=== PATIENT | female | born 1950 | race Caucasian/White ===

== ENCOUNTER 2021-02-05 17:41 | Inpatient (IN) | payer MEDICARE, BC ==
[~2021-02-05] VITALS: Ht 157.5 cm; Wt 72.6 kg
[2021-02-05] MEDS ORDERED: FENTANYL CITRATE 100 MCG/2 ML AMPUL IV ONE (18:00)
[2021-02-05] MEDS ORDERED: METO25TA6 PO (18:03)
[2021-02-05] MEDS ORDERED: PANT40TA49 PO (18:03)
[2021-02-05] MEDS ORDERED: AMLO2.5T4 PO (18:03)
[2021-02-05] MEDS ORDERED: ESCI10TA PO (18:03)
[2021-02-05] MEDS ORDERED: FENTANYL CITRATE 100 MCG/2 ML AMPUL ONE (18:13)
--- NOTE | 2021-02-05 18:17 | NUR ---
CARMELA WATKINS TALKED TO DR. MCNEILL FOR SURGICAL CONSULT.
[2021-02-05 18:41] LABS: HEMATOCRIT 39.1 % (31.2-41.9); MEAN CORPUSCULAR HEMOGLOBIN 27.6 uug (24.7-32.8); MEAN CORPUSCULAR VOLUME 83.6 fL (75.5-95.3); PLATELET COUNT (AUTO) 258 K/uL (179-408)
[2021-02-05 18:50] LABS: CREATININE 0.8 mg/dL (0.6-1.3); POTASSIUM 3.9 mmol/L (3.5-5.1)
[2021-02-05] MEDS ORDERED: IV D5 1/2 NS 1000 ML 1,000 ML IV PRN (20:00)
[2021-02-05] MEDS ORDERED: ONDANSETRON 4 MG/2 ML VIAL IV PRN (20:00)
[2021-02-05] MEDS ORDERED: ZOLPIDEM 5 MG TABLET PO PRN (20:00)
[2021-02-05] MEDS ORDERED: Z GUARD REMEDY PASTE 57 GM TUBE TOP PRN (20:00)
[2021-02-05] MEDS ORDERED: MORPHINE SULFATE 2 MG/1 ML DISP.SYRIN IV PRN (20:00)
[2021-02-05] MEDS ORDERED: MORPHINE SULFATE 4 MG/1 ML DISP.SYRIN ONE (21:13)
[2021-02-05] MEDS: ESCITALOPRAM OXALATE 10 MG TABLET PO SCH (21:13)
[2021-02-05] MEDS: MORPHINE SULFATE 4 MG/1 ML DISP.SYRIN IV PRN (21:35)
--- NOTE | 2021-02-05 21:44 | NUR ---
TRANSFERED TO 3RD FLOOR MED SURG VIA [facility] BY NURSING AIRFRAME DESIGN ENGINEER WITH NO DISTRESS NOTED.
--- NOTE | 2021-02-05 21:45 | NUR ---
Received pt via [facility] from ER. AO X 4. Able to state all needs. On room air saturating at 97%. IV intact and patent. Vital signs WNL, afebrile. Skin intact. Call lights within reach, safety measures initiated. Will continue to monitor.
[2021-02-05 22:13] VITALS: BP 140/75
[2021-02-06 03:42] LABS: BILIRUBIN,TOTAL 0.3 mg/dL (0.2-1.0); CREATININE 0.7 mg/dL (0.6-1.3); PHOSPHOROUS 3.8 mg/dL (2.5-4.9); POTASSIUM 3.8 mmol/L (3.5-5.1); TOTAL PROTEIN, SERUM 5.8 g/dL (6.4-8.2)
[2021-02-06 03:44] LABS: HEMATOCRIT 35.7 % (31.2-41.9); MEAN CORPUSCULAR HEMOGLOBIN 27.9 uug (24.7-32.8); MEAN CORPUSCULAR VOLUME 83.5 fL (75.5-95.3); PLATELET COUNT (AUTO) 233 K/uL (179-408)
[2021-02-06 04:02] LABS: *BILIRUBIN,URIN NEGATIVE (NEGATIVE); *BLOOD, URINE NEGATIVE (NEGATIVE); *CLARITY,URINE CLEAR (CLEAR); *COLOR,URINE YELLOW (YELLOW); *KETONES,URINE NEGATIVE (NEGATIVE); *UROBILINOGEN,URINE 0.2 E.U./dl (NORMAL); LEUKOCYTE ESTERASE ,URINE NEGATIVE (NEGATIVE); NITRITE, URINE NEGATIVE (NEGATIVE); UGLUCOSE NEGATIVE (NEGATIVE)
[2021-02-06 04:16] VITALS: BP 134/63
[2021-02-06 04:33] LABS: THYROID STIMULATING HORMONE 3.65 mIU/mL (0.358-3.740)
--- NOTE | 2021-02-06 05:27 | NUR ---
Patient slept throughout the night, AO x 4. On room air saturating at 96%. NPO status. IV intact and running D5 1/2 NS at 75mls/hr. No signs of acute distress. Compliant with care. All needs stated and met. Admission assessment completed. Pre-operative checklist completed. Call lights within reach, safety measures maintained. Will endorse to am shift.
[2021-02-06] MEDS: PANTOPRAZOLE SODIUM 40 MG TABLET.DR PO SCH (07:00)
[2021-02-06] MEDS ORDERED: MORPHINE SULFATE 4 MG/1 ML DISP.SYRIN IV PRN (07:15)
[2021-02-06] MEDS ORDERED: FENTANYL CITRATE 250 MCG/5 ML AMPUL ONE (07:26)
[2021-02-06] MEDS ORDERED: MIDAZOLAM HCL 2 MG/2 ML VIAL ONE (07:26)
[2021-02-06] MEDS ORDERED: HYDROMORPHONE 2 MG/1 ML DISP.SYRIN ONE (07:26)
[2021-02-06] MEDS ORDERED: ROCURONIUM BROMIDE 50 MG/5 ML VIAL ONE (07:27)
[2021-02-06] MEDS ORDERED: VANCOMYCIN 1000 MG VIAL ONE (07:29)
--- NOTE | 2021-02-06 07:54 | NUR ---
received in bed awake and oriented x4, no resp distress noted. at bedside. no c/o pain or discomfort. iv on right hand intact. picked up by OR nurses for surgery at 7:10am. no acute distress.
[2021-02-06] MEDS ORDERED: PANTOPRAZOLE SODIUM 40 MG VIAL IV SCH (09:00)
[2021-02-06] MEDS ORDERED: SEVOFLURANE 250 ML BOTTLE IH ONE (09:46)
[2021-02-06] MEDS ORDERED: NEOSTIGMINE METHYLSULFATE 10 MG/10 ML VIAL IM ONE (09:46)
[2021-02-06] MEDS ORDERED: GLYCOPYRROLATE 0.2 MG/ML VIAL IJ ONE (09:46)
[2021-02-06] MEDS ORDERED: METOCLOPRAMIDE HCL 10 MG/2 ML VIAL IV ONE (09:46)
[2021-02-06] MEDS ORDERED: PROPOFOL 200 MG/20 ML BOTTLE IV ONE (09:46)
[2021-02-06] MEDS ORDERED: LIDOCAINE-MPF 2% 5 ML VIAL IJ ONE (09:46)
[2021-02-06] MEDS ORDERED: CEFAZOLIN 1 G VIAL IM ONE (09:46)
[2021-02-06] MEDS ORDERED: ONDANSETRON 4 MG/2 ML VIAL IV ONE (09:46)
[2021-02-06] MEDS ORDERED: HYDROCODONE/APAP 10-325 MG TABLET PO PRN (10:15)
--- NOTE | 2021-02-06 11:15 | NUR ---
received back from OR sleepy but arousable and able to answer questions. denies pain at this time. right ankle with dressing intact no bleeding noted. peripheral pulse noted, skin warm to touch. pt confirmed she only has right earring. new iv line on rfa intact hydration ongoing. sister and at bedside. also seen by mackenzie valdez np and updated. cont to monitor.
[2021-02-06 11:30] VITALS: BP 142/67
[2021-02-06] MEDS: ACETAMINOPHEN 325 MG TABLET PO PRN ×3 (12:23→19:03)
[2021-02-06] MEDS: IV D5W-0.45% NS +20 KCL 1,000 ML IV PRN (12:44)
[2021-02-06] MEDS: AMLODIPINE 2.5 MG TABLET PO SCH (12:50)
[2021-02-06] MEDS: METOPROLOL TARTRATE 25 MG TABLET PO SCH (12:50)
[2021-02-06] MEDS: CEFAZOLIN 1 G in IV DEXTROSE 5% 50 ML IV SCH (16:26)
--- NOTE | 2021-02-06 18:40 | NUR ---
awake no acute distress. iv hydration ongoing. no adv reactions noted with atb. denies sob. some pain on surgical site and offered pain medication multiple times but she said she'll save it for later tonight. right ankle dressing intact, no bleeding noted. capillary refill <3s, peripheral pulse noted. safety measures maintained. needs attended.
--- NOTE | 2021-02-06 19:25 | NUR ---
Received resting in bed. AO x 4. On room air. IV intact running D5 1/2 NS 20 meq KCL. Right ankle elevated, no discoloration noted. No signs of acute distress. Denies discomfort and pain at this time. Call lights within reach, safety measures initiated. Will continue to monitor.
[2021-02-06 20:16] VITALS: BP 132/65
[2021-02-06] MEDS: ATORVASTATIN 10 MG TABLET PO SCH (20:39)
[2021-02-06] MEDS: ESCITALOPRAM OXALATE 10 MG TABLET PO SCH (20:39)
[2021-02-06] MEDS: MORPHINE SULFATE 4 MG/1 ML DISP.SYRIN IV PRN (20:40)
[2021-02-07] MEDS: CEFAZOLIN 1 G in IV DEXTROSE 5% 50 ML IV SCH (00:08)
[2021-02-07] MEDS: ACETAMINOPHEN 325 MG TABLET PO PRN ×2 (03:32→11:17)
[2021-02-07 04:16] VITALS: BP 149/69
--- NOTE | 2021-02-07 05:35 | NUR ---
Patient slept throughout the night. AO x 4. On room air saturating at 95%. Morphine 4mg IV given once for pain, effective. Post op teaching completed. Educated pt on deep breathing exercises and the use of incentive spirometer. Assisted pt to bedpan. Clear yellow, no foul odor urine. Compliant with care and medication. No signs of acute distress. All needs have been met. Call lights within reach, safety measures maintained. Will endorse to am shift.
--- NOTE | 2021-02-07 06:15 | NUR ---
L forearm IV infiltrated and have been removed. Midline requested.
[2021-02-07] MEDS: PANTOPRAZOLE SODIUM 40 MG TABLET.DR PO SCH (06:16)
--- NOTE | 2021-02-07 07:15 | NUR ---
Received patient awake, resting in bed. AOx4. On room air. No signs of acute distress. Patient denies pain/ discomfort at this time. Call light within reach. Bed alarm on for safety. Will continue to monitor.
[2021-02-07] MEDS: AMLODIPINE 2.5 MG TABLET PO SCH (08:20)
[2021-02-07] MEDS: METOPROLOL TARTRATE 25 MG TABLET PO SCH (08:20)
[2021-02-07 12:00] VITALS: BP 114/56
[2021-02-07] MEDS: IV D5W-0.45% NS +20 KCL 1,000 ML IV PRN (14:56)
[2021-02-07 16:00] VITALS: BP 124/50
[2021-02-07 16:52] LABS: MEAN CORPUSCULAR HEMOGLOBIN 28.2 uug (24.7-32.8); MEAN CORPUSCULAR VOLUME 83.6 fL (75.5-95.3); PLATELET COUNT (AUTO) 228 K/uL (179-408)
[2021-02-07 16:57] LABS: CREATININE 0.7 mg/dL (0.6-1.3); POTASSIUM 3.9 mmol/L (3.5-5.1)
--- NOTE | 2021-02-07 18:37 | NUR ---
Patient resting in bed. AOx4. On room air. No signs of acute distress. Patient complained of headache, Tylenol PRN given and patient expressed relief. Compliant with medications and care. R FA midline patent and intact. Needs anticipated and met. Call light within reach. Bed alarm on for safety. Will endorse to incoming shift for continuity of care.
--- NOTE | 2021-02-07 19:30 | NUR ---
Received patient resting in bed. AAOx4. On room air. Patient denies having SOB, chest pain or dizziness. IVF on R UA midline, infusing well. Right ankle dressing clean and intact. Safety precautions and comfort measures initiated. Bed alarm activated, Call light button and frequently used items within reach. Will continue to monitor.
[2021-02-07] MEDS: ESCITALOPRAM OXALATE 10 MG TABLET PO SCH (20:03)
[2021-02-07] MEDS: ATORVASTATIN 10 MG TABLET PO SCH (20:04)
[2021-02-07 20:44] VITALS: BP 116/53
[2021-02-08] MEDS: IV D5W-0.45% NS +20 KCL 1,000 ML IV PRN ×2 (03:13→16:51)
[2021-02-08 04:40] VITALS: BP 138/63
[2021-02-08] MEDS: PANTOPRAZOLE SODIUM 40 MG TABLET.DR PO SCH (06:03)
--- NOTE | 2021-02-08 06:49 | NUR ---
Patient slept through the night with no complains of shortness of breath, chest pain or dizziness. IVF on R UA midline, infusing well. Compliant with medications. All needs were attended to and met. Safety precautions and comfort measures were maintained. Will endorse to day shift nurse.
[2021-02-08 06:57] LABS: HEMATOCRIT 33.3 % (31.2-41.9); MEAN CORPUSCULAR HEMOGLOBIN 28.1 uug (24.7-32.8); MEAN CORPUSCULAR VOLUME 83.2 fL (75.5-95.3); PLATELET COUNT (AUTO) 228 K/uL (179-408)
[2021-02-08 07:20] LABS: CREATININE 0.6 mg/dL (0.6-1.3); POTASSIUM 4.1 mmol/L (3.5-5.1)
--- NOTE | 2021-02-08 07:46 | NUR ---
Received patient report from gill box fixer nurse. Arrived to patient sleeping. Patients bed placed in the lowest position with call light within reach. Comfort measures provided. Will continue to monitor patient throughout shift.
[2021-02-08] MEDS: AMLODIPINE 2.5 MG TABLET PO SCH (08:40)
[2021-02-08] MEDS: METOPROLOL TARTRATE 25 MG TABLET PO SCH (08:40)
[2021-02-08 12:00] VITALS: BP 129/62
[2021-02-08] MEDS: ACETAMINOPHEN 325 MG TABLET PO PRN (12:42)
[2021-02-08] MEDS ORDERED: ATOR10TA PO (12:44)
[2021-02-08] MEDS ORDERED: HYDR-3972 PO (12:45)
[2021-02-08 16:00] VITALS: BP 120/49
--- NOTE | 2021-02-08 18:49 | NUR ---
Patient currently resting in bed with no apparent signs of distress or discomfort. Patient was compliant with medication and care. R. Upper Midline intact and patent. Bed left in lowest position with call light within reach. Bed alarm on. Comfort measures provided. Will endorse to shift superintendent nurse.
[2021-02-08 20:30] VITALS: BP 120/57
[2021-02-08] MEDS: ESCITALOPRAM OXALATE 10 MG TABLET PO SCH (20:46)
[2021-02-08] MEDS: ATORVASTATIN 10 MG TABLET PO SCH (20:46)
[2021-02-09 04:25] VITALS: BP 132/67
[2021-02-09] MEDS: PANTOPRAZOLE SODIUM 40 MG TABLET.DR PO SCH (06:09)
[2021-02-09] MEDS: IV D5W-0.45% NS +20 KCL 1,000 ML IV PRN (06:14)
--- NOTE | 2021-02-09 07:30 | NUR ---
Received patient report from overnight houseperson nurse. Arrived to patient awake, alert, and oriented x 4. Patient showing no signs of distress or discomfort. IV line intact and patent. Bed placed in lowest position with call light within reach. AM care provided. Comfort measures provided. Will continue to monitor patient throughout shift.
[2021-02-09] MEDS: AMLODIPINE 2.5 MG TABLET PO SCH (08:22)
[2021-02-09] MEDS: METOPROLOL TARTRATE 25 MG TABLET PO SCH (08:23)
[2021-02-09] MEDS: ACETAMINOPHEN 325 MG TABLET PO PRN (11:58)
[2021-02-09 12:00] VITALS: BP 141/67
--- NOTE | 2021-02-09 12:40 | NUR ---
Patient was discharged to home with EMT, [facility] as transportation. Patient was in no distress or discomfort upon discharge. IV site removed. ID wrist band removed. Discharge education provided. Medication regimen education provided.
== END 2021-02-09 12:50 | disposition home health service (06) | DRG 494 ==
LOC: ER 17:41 → TRANSITION 19:12 → MEDSURG3 21:22
PROVIDERS: ADMIT Nurse Practitioner Acute Care; ATTEND Nurse Practitioner Family
PROC: 0QSJ04Z Reposition Right Fibula with Internal Fixation Device, Open Approach (ICD-10-PCS; principal; 2021-02-06)
PROC: 0QSG04Z Reposition Right Tibia with Internal Fixation Device, Open Approach (ICD-10-PCS; 2021-02-06)
PROC: 05H533Z Insertion of Infusion Device into Right Subclavian Vein, Percutaneous Approach (ICD-10-PCS; 2021-02-07)
PROC: B546ZZA Ultrasonography of Right Subclavian Vein, Guidance (ICD-10-PCS; 2021-02-07)
DX: S82.841A Displaced bimalleolar fracture of right lower leg, initial encounter for closed fracture (principal); E78.5 Hyperlipidemia, unspecified; F32.A Depression, unspecified; K21.9 Gastro-esophageal reflux disease without esophagitis; I73.00 Raynaud's syndrome without gangrene; W01.0XXA Fall on same level from slipping, tripping and stumbling without subsequent striking against object, initial encounter; Y93.9 Activity, unspecified; Y92.89 Other specified places as the place of occurrence of the external cause; Z20.822 Contact with and (suspected) exposure to COVID-19; I12.9 Hypertensive chronic kidney disease with stage 1 through stage 4 chronic kidney disease, or unspecified chronic kidney disease; N18.9 Chronic kidney disease, unspecified
CPT/HCPCS: 36415; 71045; 73600; 73610; 84100; 84443; 85025; 85730; 86850; 86900; 86901; 93005; 93307; 97161; A4217; A4663; C1713; G0378; J0690; J1170; J2250; J2270; J2405; J2765; J3010; J3370; J3490; J7060